=== PATIENT | male | born 1935 | race Caucasian/White ===

== ENCOUNTER → 2016-08-18 | Outpatient (CLI) | payer MEDICARE, BC ==
[~2016-08-18] MED LIST: CALAN PO; DILANTIN PO; LISINOPRIL PO; PHENOBARB PO
--- NOTE | ~2016-08-18 | CT14 ---
[facility] A Service of [facility] & [facility] RADIOLOGY TEXT RESULTS PATIENT: FAIZAN KILGORE LOCATION: [facility] : 35 UNIT #: [id number] AGE: [address]: Jan Collazo MD SEX: M ORDER DR: [id number] [facility] [address]. [place], [place] [address] [id number] O MR#: [id number] Acc #: [id number] NAME: FAIZAN KILGORE : 1935 SEX: M STUDY DATE/TIME: 08/18/2016 9:37 UNIT: [facility] ROOM: STUDY DESCRIPTION: CT Angio Abdomen and Pelvis Attending Physician: Jan Collazo M.D. Referring Physician: Jan Collazo M.D. Ordering Physician: Jan Collazo M.D. Primary Care Physician: Meera Titus M.D. MEDICAL IMAGING REPORT This report is preliminary unless electronic signature is present EXAM CT of the abdomen and pelvis without and with contrast with CT angiography of the abdominal aorta mesenteric vessels. HISTORY Follow up of abdominal aortic aneurysm. COMPARISON December 13, 2015. TECHNIQUE Axial imaging of the abdomen and pelvis was initially performed without contrast media. The patient was then scanned with IV contrast media in the arterial and venous phases. This CT exam was performed with one or more of the following radiation dose reduction techniques: automatic exposure control, adjustment of mA and/or kV according to patient size, and iterative reconstruction. FINDINGS Images of the lung bases show metallic fragments at the right base along the pleural surface which presumably represents suture material. This is unchanged. There is underlying basilar fibrosis and bronchiectasis particularly in the right base. This is unchanged. The coronary atherosclerotic calcifications are present. Scans through the liver unremarkable. Gallbladder is distended with multiple stones. Spleen is enlarged but unchanged. Adrenal glands are normal. Pancreas is normal. There are multiple bilateral renal masses. There is a bifurcated aortic stent graft in place. There is sigmoid diverticulosis. 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 Patient was subsequently administered IV contrast and scanned in the arterial and venous phases. Postcontrast imaging shows that the renal STS. [facility] A Service of [facility] RADIOLOGY TEXT RESULTS PATIENT: FAIZAN KILGORE LOCATION: [facility] : 35 UNIT #: [id number] AGE: [address]: Jan Collazo MD SEX: M ORDER DR: lesions all appear to represent simple renal cysts unchanged. No solid renal masses are seen. There is a type 2 endoleak present best appreciated on the delayed images. The aneurysm sac has a maximal residual diameter of 5.6 cm, it measured 5.4 cm on the previous study. Distal touchdown point the graft in the iliac vessels appears unremarkable. No significant stenosis is seen in the external iliac or femoral vessels. There is plaque at the origins of the renal vessels, as well as the celiac and SMA. The CECI is patent and likely contributes to the endoleak. Appendix is unremarkable. CONCLUSIONS 1. 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 2. Distended gallbladder with multiple gallstones. 3. Multiple bilateral renal cysts. 4. Stable splenomegaly. 5. Status post bifurcated endovascular graft placement. Maximal luminal diameter of the aneurysm is 5.6 cm, which has not changed significantly. 6. 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 I suspect there may be some lumbar involvement as well. 7. Diverticulosis without evidence of diverticulitis. Dictated by... Alireza Dawkins M.D. THIS IS AN ELECTRONICALLY VERIFIED REPORT Alireza Dawkins M.D. at 08/22/2016 3:38 PM YAZMIN/forrest TD: 08/19/2016 15:08 JOB #: [id number] MEDICAL IMAGING REPORT Page 1 of 1 COPY
[2016-08-18 09:06] LABS: CREATININE SERUM 0.9 mg/dL (0.6-1.4); GLOM FILT RATE Estimated 80.4 mL/min (>60)
== END | disposition home or self-care (01) ==
LOC: CCAT 07:58
PROVIDERS: Surgery Vascular Surgery
DX: I71.4 Abdominal aortic aneurysm, without rupture (principal); J47.9 Bronchiectasis, uncomplicated; K82.8 Other specified diseases of gallbladder; K80.20 Calculus of gallbladder without cholecystitis without obstruction; N28.1 Cyst of kidney, acquired; R16.1 Splenomegaly, not elsewhere classified; K57.90 Diverticulosis of intestine, part unspecified, without perforation or abscess without bleeding; Z95.828 Presence of other vascular implants and grafts; Z98.890 Other specified postprocedural states
CPT/HCPCS: 36415; 74174; 82565; 84520; Q9967